=== PATIENT | male | born 1955 | race Caucasian/White ===

== ENCOUNTER 2021-11-14 13:32 | Inpatient (IN) | payer OTHER, SELFPAY ==
[~2021-11-14] VITALS: Ht 152.4 cm; Wt 81.2 kg
--- NOTE | 2021-11-14 13:32 | NUR ---
BROUGHT IN BY [facility], PLACED IN BED #7 AND TRIAGED. REPORT GIVEN TO ISHA
[2021-11-14 13:33] VITALS: BP_SYST 82
--- NOTE | 2021-11-14 13:36 | NUR ---
ER at bedside examining patient.
--- NOTE | 2021-11-14 13:40 | NUR ---
Pt. bib ACLS from [facility] with low BP, chills, diaphoretic and c/o SOB, temporal temp 95.9, confirmed with rectal temp. also 95.9, pt. having loose stool, 2 dressings noted on buttocks, one to the sacrum and one to the left upper buttocks
[2021-11-14] MEDS ORDERED: NACL 0.9% 1,000 ML IV ONE (14:00)
[2021-11-14] MEDS ORDERED: ONDANSETRON HCL 4 MG/2 ML VIAL ONE ×2 (14:25→20:33)
--- NOTE | 2021-11-14 14:29 | NUR ---
CT here, informed Dr. Shin BP 76/41 and pulse [address] at this time, NS bolus infusing
[2021-11-14] MEDS ORDERED: NOREPINEPHRINE BITARTRATE 4 MG in NS 246 ML IV ONE (14:30)
[2021-11-14] MEDS ORDERED: ONDANSETRON HCL 4 MG/2 ML VIAL IVP ONE (14:30)
--- NOTE | 2021-11-14 14:34 | NUR ---
ER at bedside examining patient.
[2021-11-14] MEDS ORDERED: NOREPINEPHRINE 4 MG/4 ML VIAL IV ONE (14:36)
--- NOTE | 2021-11-14 14:40 | NUR ---
2nd bag of NS ordered and hung
--- NOTE | 2021-11-14 14:40 | NUR ---
Patient given bear hugger blanket as indicated by low rectal temperture (95.9F). Heater was placed at 43C.
[2021-11-14 14:46] LABS: BASOPHILS % (AUTO) 0.7 % (0.0-2.0); EOSINOPHILS # (AUTO) 0.1 K/uL (0.0-0.4); HEMATOCRIT 35.3 % (36-54); HEMOGLOBIN 11.9 g/dL (14.0-18.0); LYMPHOCYTES # (AUTO) 1.2 K/uL (1.0-5.5); LYMPHOCYTES % (AUTO) 20.4 % (20.5-51.5); MEAN CORPUSCULAR HEMOGLOBIN 26 pg (27-31); MEAN CORPUSCULAR HGB CONC 34 % (32-36); MEAN CORPUSCULAR VOLUME 77 fL (79.0-98.0); MONOCYTES # (AUTO) 0.5 K/uL (0.0-1.0); MONOCYTES % (AUTO) 8.7 % (1.7-9.3); NEUTROPHILS # (AUTO) 4.1 K/uL (1.8-7.7); NEUTROPHILS % (AUTO) 68.2 % (40.0-70.0); PLATELET COUNT (AUTO) 343 K/uL (130-430); RED BLOOD CELL COUNT(AUTO) 4.56 MIL/uL (4.2-6.2); RED CELL DISTRIBUTION WIDTH 16.2 % (9.0-15.0)
--- NOTE | 2021-11-14 14:48 | NUR ---
Norepinephrine started per protocol
--- NOTE | 2021-11-14 14:58 | NUR ---
norepinephrine increased per protocol BP 83/41 P=39
[2021-11-14] MEDS ORDERED: NACL 0.9% 1,000 ML IV STA (15:03)
[2021-11-14 15:05] LABS: BILIRUBIN,URINE NEGATIVE (NEGATIVE); BLOOD, URINE 3+ (NEGATIVE); CLARITY/URINE SL CLOUDY (CLEAR); COLOR,URINE YELLOW (YELLOW); GLUCOSE,URINE NEGATIVE (NEGATIVE); KETONES,URINE NEGATIVE (NEGATIVE); LEUKOCYTE ESTERASE ,URINE 2+ (NEGATIVE); NITRITE, URINE NEGATIVE (NEGATIVE); PROTEIN URINE 1+ (NEGATIVE); UROBILINOGEN,URINE 0.2 (0.2-1.0)
--- NOTE | 2021-11-14 15:05 | NUR ---
BP 105/60 M=76, P 38, O2 sat 99% on RA, RR 22, norepinephrine remains at 0.13mcg/kg/min
[2021-11-14 15:07] LABS: ANION GAP 11 (5-15); CALCIUM 9.2 mg/dL (8.4-11.0); CHLORIDE 100 mmol/L (98-107); CREATININE 1.01 mg/dL (0.55-1.30); GLUCOSE 98 mg/dL (70-99); POTASSIUM 3.8 mmol/L (3.5-5.1); SODIUM SERUM 135 mmol/L (136-145); UREA NITROGEN, BLOOD 14 mg/dL (8-21)
[2021-11-14 15:08] LABS: PROTHROMBIN TIME 10.1 SECS (9.5-12.5)
[2021-11-14 15:11] LABS: GFR AFRICAN AMERICAN 96 mL/min (>90)
[2021-11-14 15:12] LABS: ALANINE AMINOTRANSFERASE 18 U/L (12-78); ALBUMIN 3.7 g/dL (3.4-4.8); ASPARTATE AMINOTRANSFERASE 14 U/L (10-37); C-REACTIVE PROTEIN QUANT 1.5 mg/dL (0-0.5); TOTAL BILIRUBIN 0.3 mg/dL (0.0-1.0)
--- NOTE | 2021-11-14 15:13 | NUR ---
pt. states feels like can't breathe requesting O2, sat 99% on RA, RR 22, 2L of O2 started via NC for comfort
[2021-11-14 15:15] LABS: BARBITURATE, URINE NEGATIVE (NEG <=200); BENZODIAZEPINE, URINE POSITIVE (NEG <=150); CANNABINOID, URINE POSITIVE (NEG <=50); COCAINE, URINE NEGATIVE (NEG <=150); METHAMPHETAMINES SCREEN,URINE NEGATIVE (NEG <=500); OPIATE, URINE NEGATIVE (NEG <=100); PHENCYCLIDINE SCREEN,URINE NEGATIVE (NEG <=25); UR TRICYCLIC ANTIDEPRESSANTS NEGATIVE (NEG <=300); URINE AMPHETAMINE NEGATIVE (NEG <=500); URINE METHADONE NEGATIVE (NEG <=200); URINE OXYCODONE SCREEN POSITIVE (NEG <=100); URINE PROPOXYPHENE SCREEN NEGATIVE (NEG <=300)
[2021-11-14] MEDS ORDERED: OSELTAMIVIR PHOSPHATE 75 MG CAPSULE PO ONE (15:30)
[2021-11-14] MEDS ORDERED: NACL 0.9% 500 ML IV ONE (16:00)
--- NOTE | 2021-11-14 16:05 | NUR ---
still unable to get temporal tempature, remains under bear hugger set at 43C, pt. states feels warm he remains cool and clammy, wet linens replaced with warm blankets
--- NOTE | 2021-11-14 16:10 | NUR ---
Norepherine increased
[2021-11-14] MEDS ORDERED: PIPERACILLIN/TAZOBACTAM 3.375 GM/VIAL (ZOSYN) IV ONE (16:11)
[2021-11-14] MEDS ORDERED: PIPERACILLIN/TAZO 3.375 GM in NS 50 ML IV ONE (16:15)
[2021-11-14] MEDS ORDERED: VANCOMYCIN HCL 1,000 MG in NS 250 ML IV ONE (16:15)
--- NOTE | 2021-11-14 16:29 | NUR ---
BP 102/37 M-62
--- NOTE | 2021-11-14 16:30 | NUR ---
norepherine increased per protocol
[2021-11-14 16:32] LABS: ACETONE, SERUM NEGATIVE (NEGATIVE)
[2021-11-14] MEDS ORDERED: VANCOMYCIN HCL 1000 MG/VIAL IV ONE (16:35)
[2021-11-14 16:40] LABS: BACTERIA,URINE MODERATE /HPF (None Seen)
--- NOTE | 2021-11-14 16:40 | NUR ---
BP- 89/49 M- 62, norepinephrine increased per protocol now 0.21mcg/kg/min
[2021-11-14 16:41] LABS: MUCUS,URINE None Seen /LPF (None Seen); URINE AMORPHOUS URATE 2+ /HPF (None Seen)
[2021-11-14 16:48] LABS: ACETAMINOPHEN < 1 ug/mL (1-30); ALCOHOL, BLOOD < 3 mg/dL (<10)
--- NOTE | 2021-11-14 17:05 | NUR ---
update to Dr. Shin regarding inability to get temperture, pt. on warm dry blankets, rectal tube placed for continous loose stool
--- NOTE | 2021-11-14 17:09 | NUR ---
norepephrine increased per protocol
[2021-11-14] MEDS ORDERED: ACETAMINOPHEN I.V. 1000 MG 100 ML IV ONE (17:15)
[2021-11-14] MEDS ORDERED: IOHEXOL 350 mgI/mL, 150 ML INFUS..BTL IV ONE (17:37)
[2021-11-14] MEDS ORDERED: KETOROLAC TROMETHAMINE 30 MG VIAL IVP ONE (18:15)
[2021-11-14] MEDS ORDERED: NS 500 ML IV ONE (18:15)
[2021-11-14] MEDS ORDERED: DOPamine PREMIX 250 ML IV ONE (19:30)
--- NOTE | 2021-11-14 19:30 | NUR ---
Trupti sullivan running at 43 degrees. Temp at 95 orally.
[2021-11-14] MEDS: MORPHINE 2 MG/ML INJ. SYRINGE IVP PRN (19:58)
--- NOTE | 2021-11-14 20:42 | NUR ---
levophed stopped and started on dopamine at 5mcq/kg/min per protocol. BP documented and is stable.
[2021-11-14] MEDS ORDERED: ONDANSETRON HCL 4 MG/2 ML VIAL IVP PRN (20:45)
[2021-11-14] MEDS ORDERED: MILK OF MAGNESIA 30 ML UDC PO PRN (21:45)
[2021-11-14] MEDS ORDERED: LOPERAMIDE HCL 2 MG CAPSULE PO PRN (21:45)
[2021-11-14] MEDS: D5LR 1,000 ML IV SCH (22:25)
--- NOTE | 2021-11-14 22:39 | NUR ---
D5LR running at 100mls/hr.
--- NOTE | 2021-11-14 22:40 | NUR ---
Patient requested water with ice, provided and tolerated well.
--- NOTE | 2021-11-14 22:44 | NUR ---
EKG done by tech.
[2021-11-14 23:40] VITALS: BP_SYST 104
--- NOTE | 2021-11-14 23:46 | NUR ---
Patient transferred to ICU Bed 1. Report given to COMPUGRAPH OPERATOR.
[2021-11-15] VITALS (33 sets, daily range): BP systolic 78–179
[2021-11-15] MEDS ORDERED: PIPERACILLIN/TAZOBACTAM 3.375 GM/VIAL (ZOSYN) IV ONE (02:00)
[2021-11-15] MEDS: PIPERACILLIN/TAZO 3.375/DEX-IS 50 ML IV SCH ×4 (02:11→18:00)
--- NOTE | 2021-11-15 02:47 | NUR ---
DR. FERNÁNDEZ PAGED REGARDING ORDERS. SPOKE WITH VELASQUEZ HDZ AFTER HOURS.
[2021-11-15] MEDS: DIPHENHYDRAMINE HCL 25 MG CAPSULE PO SCH ×2 (03:00→22:10)
[2021-11-15] MEDS: TEMAZEPAM 7.5 MG CAPSULE PO SCH ×2 (03:00→22:11)
[2021-11-15] MEDS: D5LR 1,000 ML IV SCH ×3 (06:16→22:41)
[2021-11-15 06:43] LABS: BASOPHILS % (AUTO) 0.2 % (0.0-2.0); HEMATOCRIT 33.9 % (36-54); HEMOGLOBIN 11.3 g/dL (14.0-18.0); LYMPHOCYTES # (AUTO) 0.3 K/uL (1.0-5.5); MEAN CORPUSCULAR HEMOGLOBIN 26 pg (27-31); MEAN CORPUSCULAR HGB CONC 33 % (32-36); MEAN CORPUSCULAR VOLUME 78 fL (79.0-98.0); MONOCYTES # (AUTO) 0.8 K/uL (0.0-1.0); MONOCYTES % (AUTO) 9.8 % (1.7-9.3); PLATELET COUNT (AUTO) 278 K/uL (130-430); RED BLOOD CELL COUNT(AUTO) 4.37 MIL/uL (4.2-6.2); RED CELL DISTRIBUTION WIDTH 16.1 % (9.0-15.0); WHITE BLOOD COUNT (AUTO) 8.1 K/uL (4.8-10.8)
--- NOTE | 2021-11-15 06:46 | NUR ---
CONSULTATION PAGED/CALLED Reason for Consultation: SEPTIC SHOCK Person Who was Notified: LESLEY Consulting Physician: DR. LORA Business Management Consultant Specialty: PULMONOLOGY Ordering Physician: JOLENE
[2021-11-15 06:49] LABS: ALANINE AMINOTRANSFERASE 20 U/L (12-78); ALBUMIN 3.1 g/dL (3.4-4.8); ANION GAP 10 (5-15); ASPARTATE AMINOTRANSFERASE 15 U/L (10-37); CALCIUM 8.6 mg/dL (8.4-11.0); CHLORIDE 107 mmol/L (98-107); CREATININE 0.98 mg/dL (0.55-1.30); FREE T4 (FREE THYROXINE) 1.2 ng/dl (0.8-1.5); GLUCOSE 124 mg/dL (70-99); LIPASE 211 U/L (73-393); POTASSIUM 4.2 mmol/L (3.5-5.1); SODIUM SERUM 138 mmol/L (136-145); TOTAL BILIRUBIN 0.5 mg/dL (0.0-1.0); UREA NITROGEN, BLOOD 17 mg/dL (8-21)
--- NOTE | 2021-11-15 06:52 | NUR ---
CONSULTATION PAGED/CALLED Reason for Consultation: BRADYCARDIA Person Who was Notified: VELASQUEZ Consulting Physician: RAMESH Drum Sander Specialty: CARDIOLOGY Ordering Physician: JOLENE
--- NOTE | 2021-11-15 06:57 | NUR ---
CONSULTATION PAGED/CALLED Reason for Consultation: SEPSIS Person Who was Notified: NIDIA Consulting Physician: FLOYD [employer] Fab[employer] Impregnating Range Tender Specialty: INFECTIOUS DISEASE Ordering Physician: JOLENE
[2021-11-15 07:31] LABS: GFR AFRICAN AMERICAN 99 mL/min (>90)
--- NOTE | 2021-11-15 08:00 | NUR ---
Dr. Bone in to round. Orders left.
[2021-11-15] MEDS: OSELTAMIVIR PHOSPHATE 75 MG CAPSULE PO SCH ×2 (09:07→22:12)
[2021-11-15] MEDS ORDERED: NOREPINEPHRINE BITARTRATE 32 MG in NS 218 ML IV PRN (09:30)
[2021-11-15] MEDS ORDERED: NOREPINEPHRINE BITARTRATE 4 MG in D5W 246 ML IV PRN (10:30)
--- NOTE | 2021-11-15 12:13 | NUR ---
Nutrition Update Reinier Scale 9 noted. Pt admitted for septic shock. Diet: N/A BMI: 35 kg/m2 RD to follow per nutrition care standards.
--- NOTE | 2021-11-15 12:34 | NUR ---
ST EVALUATION COMPLETED. ST TX NOT INDICATED AT THIS TIME. RECOMMEND PO DIET OF MECHANICAL SOFT AND THIN LIQUID. 1:1 SUPERVISION FOR ASPIRATION PRECAUTIONS.
[2021-11-15] MEDS: ONDANSETRON HCL 4 MG/2 ML VIAL IVP PRN (13:37)
[2021-11-15] MEDS ORDERED: *LOVENOX 1MG/KG Q12H/PHARMACY XX ONE (14:15)
[2021-11-15] MEDS ORDERED: FAMOTIDINE PF 20 MG/2 ML VIAL IVP ONE (14:45)
[2021-11-15] MEDS ORDERED: ENOXAPARIN SODIUM 80 MG/0.8 ML SYRINGE SUBCUT ONE (15:00)
[2021-11-15] MEDS: MORPHINE 2 MG/ML INJ. SYRINGE IVP PRN ×2 (15:38→23:11)
--- NOTE | 2021-11-15 15:57 | NUR ---
Dietitian Recommendations * Continue plan for clear liquid, no red diet per physician (ONS Ensure Clear TID comes standard w/ current diet; provides 720 kcal/day, 24 gm protein/day) LEANNE, COSTA Please refer to Nutrition Assessment for details. Addendum: 11/15/21 at [address] Amended: Links added.
[2021-11-15] MEDS ORDERED: METOCLOPRAMIDE HCL 10 MG/2 ML VIAL IVP SCH (18:00)
--- NOTE | 2021-11-15 18:56 | NUR ---
End of Shift Summary: Pt is NPO on bowel rest for large ileus. He had 2 episodes of N/V, the first after his swallow eval. He is having liquid, brown stools. Dignicare in place. Sample sent for C. Diff eval, but diarrhea is likely 2/2 ileus and stool impaction. Per pt's sister, he likely has not had a bowel movement since the last time her got his bowel regimen on 10/31/21. Pt agreed to NGT insertion and placement to LIS per Dr. Ceron. Pt also agreed to PICC line placement after speaking with his sister; he is a difficult IV placement and will require regular blood draws. Pt remains on Levophed infusion for BP support. Pt weaned off supplemental O2. Temperature trending up, will continue to monitor. Pt's daughter visited and was updated on his condition. She will bring info regarding the Rx he has for the eczema on his face and scalp.
--- NOTE | 2021-11-15 21:00 | NUR ---
PATIENT WAS ACCEPTED AND ASSESS DONE , PATIENT IS SPINAL INJURIES THERE ARE PLAN FOR THE BOWEL AND BLADDER CARE , PATIENT IS UNABLE TO TAKE CARE OF HIM SELF , PARIENT IS LEVOPHED DRIP TO MAINTAIN HIS BP , UNABLE TO WEAN AT THIS TIME , PATIENT HAS NO PATIENCE AND IS VERY DEMANDING , NEED AN NURSE OR CARE GIVEN PER SELF , NOT SATISFIED , WHEN THING ARE DONE FOR HIM , HAS AN EMTZ RETAL TUBE NGT AND THE PATIENT IS NPO MEDICATION DOWN THE NGT PATIENT ASK FOR WATER TO DRINK TRIED TO EXPLAINED WITH THE NGT IN IF WOULD BE SOME PROBLEM DID NOT WANT TO HEAR WHAT HAS BEEN SAID STILL WANTED THE WATER, , WILL CONTINUED TO MONITOR THE PATIENT
[2021-11-15] MEDS: FAMOTIDINE PF 20 MG/2 ML VIAL IVP SCH (22:12)
--- NOTE | 2021-11-15 23:00 | NUR ---
THE RECTAL TUBE LEAK AROUND TUBING SAMUEL SKIN CARE TO BE GIVEN ALSO AT THIS TIME THE BP WAS LOW THE LEVOPHED DRIP INCREASED TO 0.05 WILL LEAVE HERE STABLE CONTINUED TO MONITOR , STABLE
[2021-11-16] VITALS (24 sets, daily range): BP systolic 92–137
[2021-11-16] MEDS: PIPERACILLIN/TAZO 3.375/DEX-IS 50 ML IV SCH ×4 (00:30→17:44)
[2021-11-16 04:55] LABS: BASOPHILS % (AUTO) 0.5 % (0.0-2.0); EOSINOPHILS % (AUTO) 0.1 % (0.0-4.0); HEMATOCRIT 37.1 % (36-54); HEMOGLOBIN 12.4 g/dL (14.0-18.0); LYMPHOCYTES # (AUTO) 1.1 K/uL (1.0-5.5); LYMPHOCYTES % (AUTO) 11.6 % (20.5-51.5); MEAN CORPUSCULAR HEMOGLOBIN 26 pg (27-31); MEAN CORPUSCULAR HGB CONC 33 % (32-36); MEAN CORPUSCULAR VOLUME 77 fL (79.0-98.0); MONOCYTES # (AUTO) 1.5 K/uL (0.0-1.0); MONOCYTES % (AUTO) 15.6 % (1.7-9.3); NEUTROPHILS # (AUTO) 6.9 K/uL (1.8-7.7); NEUTROPHILS % (AUTO) 72.2 % (40.0-70.0); PLATELET COUNT (AUTO) 294 K/uL (130-430); RED BLOOD CELL COUNT(AUTO) 4.81 MIL/uL (4.2-6.2); RED CELL DISTRIBUTION WIDTH 16.2 % (9.0-15.0); WHITE BLOOD COUNT (AUTO) 9.6 K/uL (4.8-10.8)
[2021-11-16 05:14] LABS: ALBUMIN 2.7 g/dL (3.4-4.8); CALCIUM 8.7 mg/dL (8.4-11.0); POTASSIUM 4.3 mmol/L (3.5-5.1); TOTAL BILIRUBIN 0.5 mg/dL (0.0-1.0)
--- NOTE | 2021-11-16 05:34 | NUR ---
PATIENT HAD REST THRU OUT THE NITE ALSO HAD GOTTEN MORPHINE 2MG IV AT 2311 HAD ASK ABOUT HIS MEDICATION SLEEPER , STABLE WILL CONTINUED WITH PLAN OF CARE, STABLE
[2021-11-16] MEDS: OSELTAMIVIR PHOSPHATE 75 MG CAPSULE PO SCH ×2 (08:34→22:04)
[2021-11-16] MEDS: FAMOTIDINE PF 20 MG/2 ML VIAL IVP SCH ×2 (08:34→22:06)
[2021-11-16] MEDS: ENOXAPARIN SODIUM 80 MG/0.8 ML SYRINGE SUBCUT SCH ×2 (08:36→22:05)
[2021-11-16] MEDS: D5LR 1,000 ML IV SCH ×2 (08:56→16:22)
[2021-11-16] MEDS: MORPHINE 2 MG/ML INJ. SYRINGE IVP PRN ×2 (09:02→16:19)
[2021-11-16] MEDS: MIDODRINE HCL 5 MG TABLET (PROAMATINE) PO SCH ×2 (16:18→22:04)
[2021-11-16] MEDS: ONDANSETRON HCL 4 MG/2 ML VIAL IVP PRN (16:18)
[2021-11-16] MEDS ORDERED: GOLYTELY / COLYTE SOLUTION 4 LITERS NG ONE (18:45)
[2021-11-16] MEDS ORDERED: KETOCONAZOLE 2% TP SCH (18:45)
--- NOTE | 2021-11-16 19:30 | NUR ---
Pt report received. Pt alert, responsive, NGT patent and secure to low intermittent wall suction with approx 200 mL dark green stomach contents to suction cannister. PIV to RAC and Left wrist patent and secure. PICC RITESH patent and secure wtih D5LR infusing at 100 mL/hr. F/C secure with eugenio urine to tubing and bag. Flexiseal intact with loose brown stool to bag. Denies c/o pain or discomfort, no needs vebalized at this time.
[2021-11-16] MEDS: SENNA 8.8 MG/5 ML UDC NG SCH (21:00)
--- NOTE | 2021-11-16 21:00 | NUR ---
Oral care provided.
[2021-11-16] MEDS: TEMAZEPAM 7.5 MG CAPSULE PO SCH (22:04)
[2021-11-16] MEDS: DIPHENHYDRAMINE HCL 25 MG CAPSULE PO SCH (22:04)
--- NOTE | 2021-11-16 23:00 | NUR ---
NGT remains connected to low intermittent wall suction with approximately 600 mL dark green stomach contents to suction canister. Abdomen firm to touch. Pt c/o nausea. Wall suction turned to low continuous suction and suction canister fills to 1 liter. Changed suction canister and removed another 400 mL of dark green stomach contents. Suction placed back to low intermittent. Abdomen soft and pt verbalizes improvement in level of comfort. Pt to be medicated with Zofran 4 mg IVP.
[2021-11-17] VITALS (24 sets, daily range): BP systolic 93–160
[2021-11-17] MEDS: D5LR 1,000 ML IV SCH ×2 (03:07→13:37)
--- NOTE | 2021-11-17 06:00 | NUR ---
Pt alert, responsive, denies c/o pain or discomfort. No needs verbalized at this time. Wall suction turned to low continuous and 300 mL dark green stomach contents removed, then placed back to low intermittent suction.VSS, KARINA.
[2021-11-17] MEDS: PIPERACILLIN/TAZO 3.375/DEX-IS 50 ML IV SCH ×4 (06:44→17:52)
[2021-11-17 06:45] LABS: BASOPHILS # (AUTO) 0.1 K/uL (0.0-0.2); BASOPHILS % (AUTO) 0.7 % (0.0-2.0); EOSINOPHILS % (AUTO) 0.1 % (0.0-4.0); HEMATOCRIT 30.1 % (36-54); HEMOGLOBIN 10.2 g/dL (14.0-18.0); LYMPHOCYTES # (AUTO) 1.1 K/uL (1.0-5.5); LYMPHOCYTES % (AUTO) 14.1 % (20.5-51.5); MEAN CORPUSCULAR HEMOGLOBIN 26 pg (27-31); MEAN CORPUSCULAR HGB CONC 34 % (32-36); MEAN CORPUSCULAR VOLUME 76 fL (79.0-98.0); MONOCYTES # (AUTO) 1.1 K/uL (0.0-1.0); MONOCYTES % (AUTO) 14.5 % (1.7-9.3); NEUTROPHILS # (AUTO) 5.5 K/uL (1.8-7.7); NEUTROPHILS % (AUTO) 70.6 % (40.0-70.0); PLATELET COUNT (AUTO) 220 K/uL (130-430); RED BLOOD CELL COUNT(AUTO) 3.95 MIL/uL (4.2-6.2); RED CELL DISTRIBUTION WIDTH 15.6 % (9.0-15.0); WHITE BLOOD COUNT (AUTO) 7.9 K/uL (4.8-10.8)
[2021-11-17 07:13] LABS: CALCIUM 8.5 mg/dL (8.4-11.0); CREATININE 1.05 mg/dL (0.55-1.30); PHOSPHORUS 3.5 mg/dL (2.7-4.5); POTASSIUM 3.4 mmol/L (3.5-5.1)
--- NOTE | 2021-11-17 07:29 | NUR ---
Pt report given to oncoming RN.
[2021-11-17] MEDS ORDERED: GOLYTELY / COLYTE SOLUTION 4 LITERS NG ONE (08:00)
--- NOTE | 2021-11-17 08:15 | NUR ---
CONSULT GI CONSULTING MD: DR. HUNT (DR. SPAULDING FARMWORKER GRAIN) PERSON NOTIFIED: JUSTIN DIALED: [phone] ORDERED BY: DR. AVALOS
[2021-11-17] MEDS: KETOCONAZOLE 2% TP SCH (09:00)
--- NOTE | 2021-11-17 09:00 | NUR ---
nizoral not admin, pt head shaved
--- NOTE | 2021-11-17 09:00 | NUR ---
Dr. Bazan asked to hold go cammie pending GI consult
[2021-11-17] MEDS: FAMOTIDINE PF 20 MG/2 ML VIAL IVP SCH ×2 (09:34→21:59)
[2021-11-17] MEDS: OSELTAMIVIR PHOSPHATE 75 MG CAPSULE PO SCH ×2 (09:34→22:00)
[2021-11-17] MEDS: MIDODRINE HCL 5 MG TABLET (PROAMATINE) PO SCH ×3 (09:35→21:59)
[2021-11-17] MEDS: SENNA 8.8 MG/5 ML UDC NG SCH ×2 (09:35→21:59)
[2021-11-17] MEDS: ENOXAPARIN SODIUM 80 MG/0.8 ML SYRINGE SUBCUT SCH ×2 (09:36→22:01)
[2021-11-17] MEDS: MORPHINE 2 MG/ML INJ. SYRINGE IVP PRN ×3 (11:45→20:00)
[2021-11-17] MEDS ORDERED: MINERAL OIL 133 ML ENEMA RC ONE (15:30)
[2021-11-17] MEDS: SODIUM PHOSPHATE,MONO-DIBASIC 133 ML ENEMA RC PRN ×2 (15:55→15:57)
[2021-11-17] MEDS ORDERED: POTASSIUM CHLORIDE 40 MEQ in D5W 250 ML IV ONE (16:00)
[2021-11-17] MEDS ORDERED: METOCLOPRAMIDE HCL 10 MG/2 ML VIAL ONE (16:50)
[2021-11-17] MEDS: METOCLOPRAMIDE HCL 10 MG/2 ML VIAL IVP SCH ×2 (16:52→22:01)
[2021-11-17] MEDS: ACETAMINOPHEN 325 MG TABLET PO PRN (17:39)
[2021-11-17] MEDS ORDERED: KCL 40 mEq in 100 mL (PREMIX) 100 ML IV ONE (18:33)
[2021-11-17] MEDS ORDERED: VANCOMYCIN HCL 1 GM/NS PREMIX 250 ML IV ONE (20:00)
[2021-11-17] MEDS ORDERED: ENOXAPARIN SODIUM 100 MG/ML SYRINGE ONE (20:31)
[2021-11-17] MEDS ORDERED: VANCOMYCIN HCL 1000 MG/VIAL IV ONE (20:49)
[2021-11-17] MEDS: DIPHENHYDRAMINE HCL 25 MG CAPSULE PO SCH (21:59)
[2021-11-17] MEDS: TEMAZEPAM 7.5 MG CAPSULE PO SCH (22:00)
[2021-11-18] VITALS (20 sets, daily range): BP systolic 106–175
[2021-11-18] MEDS: PIPERACILLIN/TAZO 3.375/DEX-IS 50 ML IV SCH ×4 (00:44→17:09)
[2021-11-18] MEDS: MORPHINE 2 MG/ML INJ. SYRINGE IVP PRN ×4 (00:55→21:35)
[2021-11-18] MEDS: D5LR 1,000 ML IV SCH ×4 (03:00→22:02)
[2021-11-18] MEDS: METOCLOPRAMIDE HCL 10 MG/2 ML VIAL IVP SCH ×3 (06:27→21:13)
[2021-11-18 06:32] LABS: BASOPHILS # (AUTO) 0.1 K/uL (0.0-0.2); BASOPHILS % (AUTO) 1.1 % (0.0-2.0); EOSINOPHILS # (AUTO) 0.1 K/uL (0.0-0.4); EOSINOPHILS % (AUTO) 1.1 % (0.0-4.0); HEMATOCRIT 25.3 % (36-54); HEMOGLOBIN 8.8 g/dL (14.0-18.0); LYMPHOCYTES # (AUTO) 0.8 K/uL (1.0-5.5); LYMPHOCYTES % (AUTO) 16.6 % (20.5-51.5); MEAN CORPUSCULAR HEMOGLOBIN 26 pg (27-31); MEAN CORPUSCULAR HGB CONC 35 % (32-36); MEAN CORPUSCULAR VOLUME 76 fL (79.0-98.0); MONOCYTES # (AUTO) 0.6 K/uL (0.0-1.0); MONOCYTES % (AUTO) 11.3 % (1.7-9.3); NEUTROPHILS # (AUTO) 3.5 K/uL (1.8-7.7); NEUTROPHILS % (AUTO) 69.9 % (40.0-70.0); PLATELET COUNT (AUTO) 173 K/uL (130-430); RED BLOOD CELL COUNT(AUTO) 3.35 MIL/uL (4.2-6.2)
[2021-11-18 06:40] LABS: ALBUMIN 2.1 g/dL (3.4-4.8); CALCIUM 7.9 mg/dL (8.4-11.0); CREATININE 0.84 mg/dL (0.55-1.30); PHOSPHORUS 2.4 mg/dL (2.7-4.5); POTASSIUM 3.5 mmol/L (3.5-5.1); TOTAL BILIRUBIN 0.4 mg/dL (0.0-1.0)
--- NOTE | 2021-11-18 08:45 | NUR ---
Patient was seen for Evaluation and ROM to his extremities. He became very upset when he was told that he can receive ROM exercises several times a week while in the hospital. He misunderstood that to mean that he was staying for a prolonged time in the hospital. Patient called his daughter, Cris, who spoke with the Physical Therapist. Daughter, said that she will be at the hospital later. Physical Therapist spoke with the patient's RN.
[2021-11-18] MEDS ORDERED: GASTROGRAFIN 120 ML ONE (09:02)
[2021-11-18] MEDS: FAMOTIDINE PF 20 MG/2 ML VIAL IVP SCH ×2 (09:12→21:14)
[2021-11-18] MEDS: SENNA 8.8 MG/5 ML UDC NG SCH ×2 (09:12→21:22)
[2021-11-18] MEDS: amLODIPine BESYLATE 5 MG TABLET PO SCH (09:12)
[2021-11-18] MEDS: SODIUM PHOSPHATE,MONO-DIBASIC 133 ML ENEMA RC PRN (09:12)
[2021-11-18] MEDS: OSELTAMIVIR PHOSPHATE 75 MG CAPSULE PO SCH ×2 (09:13→21:10)
[2021-11-18] MEDS ORDERED: VANCOMYCIN HCL 750 MG in NS 250 ML IV SCH (10:00)
[2021-11-18] MEDS: ENOXAPARIN SODIUM 80 MG/0.8 ML SYRINGE SUBCUT SCH ×2 (10:14→21:17)
--- NOTE | 2021-11-18 10:56 | NUR ---
Discharge Planning: DCP faxed pt referral to [facility] (F [phone] P [phone]) DCP to follow up. Addendum: 11/18/21 at 1601 by Daija Rankin DP Katharine at [facility] (F [phone] P [phone]) stated she will wait for results of small bowel procedure before giving bed.
[2021-11-18] MEDS ORDERED: hydrALAZINE HCL 20 MG/ML VIAL IVP PRN (12:15)
[2021-11-18] MEDS ORDERED: POTASSIUM CHLORIDE 40 MEQ in D5W 250 ML IV ONE (12:30)
[2021-11-18] MEDS ORDERED: NALOXONE HCL 0.4 MG/ML AMP (NARCAN) IVP PRN (13:15)
[2021-11-18 13:30] LABS: TOTAL IRON BIND. CAPACITY 234 ug/dL (250-450)
[2021-11-18] MEDS: AMIKACIN SULFATE 450 MG in D5W 100 ML IV SCH (14:08)
[2021-11-18] MEDS: ONDANSETRON HCL 4 MG/2 ML VIAL IVP PRN (15:17)
--- NOTE | 2021-11-18 17:26 | NUR ---
Pt had elevated bp 152/90, medicated with hydralazine. Pt had abdominal bowel series at the bedside, read the results to DR Dodge and obtained order to d/c ngt and ordered swallow eval by speech therapist. Pt did have some nausea and medicated with zofran per md order. Pt also had 2 large loose bms, skin washed and kept dry. Pt remains SR at 63, BP 106/71.
[2021-11-18] MEDS: ACETAMINOPHEN 325 MG TABLET PO PRN (18:10)
--- NOTE | 2021-11-18 19:30 | NUR ---
OPENING NOTE RECEIVED REPORT FROM DAY RN. PT AOX4. RIGHT UPPER ARM PICC INTACT. DRESSING CLEAN AND DRY. PT HAS TWO ADDITIONAL IV LINES IN RIGHT AC 20G AND LEFT FA 22G. METZ INTACT AND DRAINING YELLOW FLUID. BED IN LOWEST AND LOCKED POSITION. EDUCATION PT ON PLAN OF CARE FOR THE NIGHT. CALL LIGHT WITHIN REACH. SAFETY PRECAUTIONS IN PLACE. WILL CONTINUE TO MONITOR.
[2021-11-18] MEDS: TEMAZEPAM 7.5 MG CAPSULE PO SCH (21:10)
[2021-11-18] MEDS: DIPHENHYDRAMINE HCL 25 MG CAPSULE PO SCH (21:14)
--- NOTE | 2021-11-18 21:20 | NUR ---
MEDICATION REQUEST PT WOULD LIKE HIS RESTORIL AND BENADRYL TO BE ADMINISTERED AT 0100. PT STATES, "ONLY OLD PEOPLE SLEEP THIS EARLY". PT EDUCATED ON SCHEDULED DOSES. PT PREFERS LATER TIME.
[2021-11-19] VITALS (9 sets, daily range): BP systolic 133–157
[2021-11-19] MEDS: PIPERACILLIN/TAZO 3.375/DEX-IS 50 ML IV SCH ×2 (00:52→05:21)
[2021-11-19] MEDS ORDERED: AMIKACIN SULFATE 500 MG/2 ML VIAL ONE (01:35)
[2021-11-19] MEDS: HYDROcodone/ACETAMIN 10-325 MG TAB PO PRN (02:10)
[2021-11-19] MEDS: AMIKACIN SULFATE 450 MG in D5W 100 ML IV SCH ×2 (02:11→15:18)
--- NOTE | 2021-11-19 04:48 | NUR ---
Swallow Eval Called Left a message to Jill regarding swallow eval, ordered by Dr. Dodge.
[2021-11-19] MEDS: METOCLOPRAMIDE HCL 10 MG/2 ML VIAL IVP SCH ×3 (05:22→21:45)
[2021-11-19] MEDS: D5LR 1,000 ML IV SCH (05:31)
--- NOTE | 2021-11-19 05:45 | NUR ---
ROUNDING DURING ROUNDING PATIENT HAD VOIDED. COLLECTED STOOL SAMPLE AND DELIVERED TO LAB FOR OCCULT BLOOD. PATIENT ALERT IN BED. WILL CONTINUE TO MONITOR.
[2021-11-19 06:42] LABS: CREATININE 0.76 mg/dL (0.55-1.30); POTASSIUM 3.3 mmol/L (3.5-5.1)
--- NOTE | 2021-11-19 06:54 | NUR ---
CLOSING NOTES PATIENT ALERT IN BED. PILLOWS ADJUSTED FOR COMFORT. RESPIRATIONS EVEN AND UNLABORED. PATIENT DENIES ANY PAIN AT THIS TIME. BED IN LOWEST AND LOCKED POSITION. ALL NEEDS MET. WILL ENDORSE TO DAY RN.
[2021-11-19 07:39] LABS: BASOPHILS % (AUTO) 0.4 % (0.0-2.0); EOSINOPHILS # (AUTO) 0.1 K/uL (0.0-0.4); EOSINOPHILS % (AUTO) 3.5 % (0.0-4.0); HEMATOCRIT 25.5 % (36-54); HEMOGLOBIN 8.6 g/dL (14.0-18.0); LYMPHOCYTES # (AUTO) 1.1 K/uL (1.0-5.5); LYMPHOCYTES % (AUTO) 27.2 % (20.5-51.5); MEAN CORPUSCULAR HEMOGLOBIN 26 pg (27-31); MEAN CORPUSCULAR HGB CONC 34 % (32-36); MEAN CORPUSCULAR VOLUME 76 fL (79.0-98.0); MONOCYTES # (AUTO) 0.6 K/uL (0.0-1.0); MONOCYTES % (AUTO) 13.3 % (1.7-9.3); NEUTROPHILS # (AUTO) 2.3 K/uL (1.8-7.7); NEUTROPHILS % (AUTO) 55.6 % (40.0-70.0); PLATELET COUNT (AUTO) 176 K/uL (130-430); RED BLOOD CELL COUNT(AUTO) 3.35 MIL/uL (4.2-6.2); RED CELL DISTRIBUTION WIDTH 16.3 % (9.0-15.0); WHITE BLOOD COUNT (AUTO) 4.2 K/uL (4.8-10.8)
--- NOTE | 2021-11-19 08:00 | NUR ---
NOTES PATIENT AAOX 4. VITALS SIGNS STABLE. AFEBRILE. LUNGS BILATERALLY BUT DIMINISHED AT THE BASES. ABDOMEN SOFT AND NON DISTENDED. HAS IV ACCESS RT UPPER ARM PICC LINE. SALINE LOCKED. HAS IV ACCESS ON THE LEFT FOREARM #20 SALINE LOCKED. PATENT/DRY. WILL CONTINUE
[2021-11-19 08:06] LABS: FOLATE (FOLIC ACID) 4.5 ng/mL (>3.0)
[2021-11-19] MEDS: FAMOTIDINE PF 20 MG/2 ML VIAL IVP SCH ×2 (09:54→21:46)
[2021-11-19] MEDS: SENNA 8.8 MG/5 ML UDC NG SCH ×2 (09:54→21:46)
[2021-11-19] MEDS: OSELTAMIVIR PHOSPHATE 75 MG CAPSULE PO SCH ×2 (09:55→21:46)
[2021-11-19] MEDS: amLODIPine BESYLATE 5 MG TABLET PO SCH (09:56)
[2021-11-19] MEDS: ENOXAPARIN SODIUM 80 MG/0.8 ML SYRINGE SUBCUT SCH ×2 (09:57→21:51)
[2021-11-19] MEDS: MORPHINE 2 MG/ML INJ. SYRINGE IVP PRN ×2 (10:01→14:17)
--- NOTE | 2021-11-19 10:20 | NUR ---
due meds given at this time. morphine 3 mg iv given for generalized pain. made comfortable.
[2021-11-19] MEDS: KETOCONAZOLE 2% TP SCH (10:25)
--- NOTE | 2021-11-19 10:40 | NUR ---
DR FERNÁNDEZ CALLED FOR POTASSIUM LEVEL OF 3.3. AWAITING TO CALL BACK.
[2021-11-19] MEDS ORDERED: POTASSIUM CHLORIDE 40 MEQ in D5W 250 ML IV ONE (11:15)
--- NOTE | 2021-11-19 13:19 | NUR ---
Nutrition F/U Admitting Diagnosis: Septic shock Medical History Comment: obesity, HLD, neck Sx, QP per physician notes Pt also found w/ SIRS, influenza B w/ hyponatremia and bradycardia per physician notes SARS-CoV-2 Ag (Rapid) Negative 11/14 & Influenza B Positive 11/14 Subjective Information: RD bedside visit deferred d/t high pt load. Per EMR review, pt is for discharge back to rehab facility. Current Diet Order/Nutrition Support: Mechanical soft 2gm Na diet. Pertinent Medications: reviewed Pertinent Labs : 11/19 Na 141, K 3.3L, BG 95, BUN 10, Cre 0.76 Height (Feet) 5 feet Height (Inches) 0.00 inches Weight (Pounds) 179 pounds (11/15) --stable Weight (Calculated Kilograms) 81.936208 kilograms Patient Weight 81.193 kg Body Mass Index 34.95 kg/m2 %IBW 169 [place]/Adjusted Body Weight 106#/48 kg. 124#/56 kg Estimated Energy Expenditure (kcals/day) 9387-9688 (30-35 kcal/kg Adj IBW d/t SIRS) Estimated Protein Required (g/day) 84-112 (1.5-2 gm/kg Adj IBW d/t SIRS) Estimated Fluid Required (l/day) 1.7-2 (1 ml/kcal/day for maintenance) Problem/Etiology/Signs/Symptoms Complicated GI function R/T unknown etiology AEB diarrhea and vomiting. (*improved) Expected Outcomes/Goals - Monitor tolerance to PO diet, appetite, and PO intakes w/ goal of pt meeting at least 50% of estimated nutritional needs, labs trending WNL, normal GI function, and skin integrity/wt maintenance Dietitian Recommendations * Continue Mechanical soft diet chopped 2gm Na diet. Follow Up Mod Risk: F/U in 3-5days
--- NOTE | 2021-11-19 14:21 | NUR ---
CM: LVM to [facility] worker's comp # [phone] and to [facility] # [phone], requesting ambulance auth to transfer pt back to [facility] as per dc order today. Pt's spouse, Marley made aware, she agreed with the transfer back to the rehab today. >>Faxed the order and updated progress note to Porsha Alcantartormarit[facility]. The pt is accepting back to room 9, PAIGE to report # [phone]. Addendum: 11/19/21 at 1519 by Abdirashid Drake RN >>S/W Arlin, worker's comp # [phone], I requested the lemon picker time after 6 pm per PAIGE Stephens this is due to K - David infusion is in progress. Arlin stated she arranged the ambulance through " [facility] " who will be calling nursing unit back for the lemon picker time. PAIGE Barron aware.
--- NOTE | 2021-11-19 16:17 | NUR ---
ST EVALUATION COMPLETED. ST TX NOT INDICATED AT THIS TIME. RECOMMEND PO DIET OF REGULAR TEXTURE AND THIN LIQUID WITH 1:1 FEEDER AND FULL ASPIRATION PRECAUTIONS
--- NOTE | 2021-11-19 16:23 | NUR ---
Pt refused PT due to pain at this time. Will attempt PT on another day.
--- NOTE | 2021-11-19 17:19 | NUR ---
GHASSAN INSPECTOR WELDED PARTS CAME WHERE TO INSPECTOR WELDED PARTS THE PATIENT AND INFORMED THE WET ROLLER NAMED ART, THAT HE CANNOT INSPECTOR WELDED PARTS THE PATIENT. DUE TO THE STATUS OF THE PATIENT. DR FERNÁNDEZ CALLED AT THIS TIME. AWAITING TO CALL BACK.
--- NOTE | 2021-11-19 19:30 | NUR ---
OPENING NOTES RECEIVED REPORT FROM DAY RN. PATIENT TO BE DISCHARGED TO [facility], SENT WRONG TRANSPORTATION DEVICE FOR PATIENT STATUS. WILL AWAIT PROPER TRANSPORTATION FOR PATIENT TRANSFER. PATIENT AWAKE, ALERT AND ORIENTED. SITTING IN BED WATCHING TV. BREATHING EVEN AND UNLABORED ON ROOM AIR. METZ INTACT AND DRAINING WITH GRAVITY. IV IN RIGHT PIC RUNNING TKO. BED IN LOWEST AND LOCKED POSITION. SAFETY PRECAUTIONS IN PLACE. WILL CONTINUE TO MONITOR.
--- NOTE | 2021-11-19 21:23 | NUR ---
PAGED DR. FERNÁNDEZ REGARDING PT D/C. AND UNABLE TO TRANSFER PT IN [facility]. WILL AWAIT CALLBACK.
--- NOTE | 2021-11-19 21:27 | NUR ---
CALLBACK FROM DR. FERNÁNDEZ INFORMED OF PT NOT BEING D/C D/T UNSAFE TRANSFER CONDITIONS. OK TO HOLD D/C UNTIL CASE MANAGEMENT ABLE TO ARRANGE NEW TRANSPORTATION. NEW ORDERS PLACED.
[2021-11-19] MEDS: DIPHENHYDRAMINE HCL 25 MG CAPSULE PO SCH (21:45)
[2021-11-19] MEDS: TEMAZEPAM 7.5 MG CAPSULE PO SCH (21:46)
--- NOTE | 2021-11-19 21:58 | NUR ---
TRANSPORTATION CALL FROM [facility]. REHAB INQUIRED ABOUT STATUS OF TRANSFER FROM [facility]. CLAIMS A SECOND TRANSPORT WAS DUE TO SPAN[facility] LINGUIST PT WITH THE PROPER TRANSFORATION DEVICE FOR PATIENT SAFETY AND COMFORT. VERIFIED THAT NO INFORMATION WAS PASSED ALONG TO [facility] REGARDING ANOTHER TRANSPORTATION UNIT BEING DISPATCHED. WILL CALL BACK TO VERIFY CORRECT TRANSPORTATION INFORMATION FOR PATIENT.
--- NOTE | 2021-11-19 23:00 | NUR ---
CONTACTED ACUTE REHAB FOLLOW UP WITH [facility]. NO NEW TRANSPORTATION ORDERED, PREVIOUSLY STATED. WILL WAIT UNTIL MORNING, 11/20 TO INITIATE NEW TRANSPORTATION FOR PT.
[2021-11-20 00:39] VITALS: BP_SYST 165
[2021-11-20] MEDS: HYDROcodone/ACETAMIN 10-325 MG TAB PO PRN (00:52)
[2021-11-20] MEDS: AMIKACIN SULFATE 450 MG in D5W 100 ML IV SCH ×2 (01:49→16:06)
--- NOTE | 2021-11-20 02:00 | NUR ---
ROUNDING PATIENT IN BED RESTING WITH EYES CLOSED. ADJUSTED PATIENT PILLOWS AT REQUEST OF PATIENT. PATIENT VERIFIED COMFORT. SAFETY PRECAUTIONS IN PLACE. BED IN LOWEST AND LOCKED POSITION. WILL CONTINUE TO MONITOR.
[2021-11-20] MEDS: ACETAMINOPHEN 325 MG TABLET PO PRN (04:10)
[2021-11-20] MEDS: METOCLOPRAMIDE HCL 10 MG/2 ML VIAL IVP SCH ×2 (06:05→16:02)
--- NOTE | 2021-11-20 06:34 | NUR ---
CLOSING NOTE PATIENT IS IN BED RESTING WITH EYES CLOSED. ADJUSTED PILLOWS FOR PATIENT COMFORT. METZ INTACT AND DRAINING WITH GRAVITY. RITESH PICC LINE INTACT AND FLUSHES WELL AND PATENT. REMOVED OTHER IV LINES ON L FOREARM AND RIGHT AC. PATIENT DENIES SHORTNESS OF BREATH AND PAIN. ALL NEEDS MET. BED IN LOWEST AND LOCKED POSITION. SAFETY PERCEPTIONS IN PLACE. WILL ENDORSE TO DAY RN.
--- NOTE | 2021-11-20 08:00 | NUR ---
NOTES PATIENT AAOX 4. VITALS SIGNS STABLE. AFEBRILE. LUNGS BILATERALLY DIMINISHED AT BASES. ABDOMEN SOFT AND NON DISTENDED. HAS RT UPPER PICC LINE. SALINE LOCK. CALL LIGHTS WITHIN REACH. BED LOW POSITION, ALARMED AND LOCKED. WILL CONTINUE TO MONITOR. HAS METZ CATHETER IN PLACED AND DRAINING WELL.
[2021-11-20 08:03] LABS: ALBUMIN 2.3 g/dL (3.4-4.8); CALCIUM 8.2 mg/dL (8.4-11.0); CREATININE 0.63 mg/dL (0.55-1.30); POTASSIUM 3.2 mmol/L (3.5-5.1); TOTAL BILIRUBIN 0.2 mg/dL (0.0-1.0)
[2021-11-20 09:00] VITALS: BP_SYST 154
--- NOTE | 2021-11-20 09:30 | NUR ---
DUE MEDS GIVEN TO THE PATIENT.
[2021-11-20] MEDS: MORPHINE 2 MG/ML INJ. SYRINGE IVP PRN ×2 (09:55→14:34)
--- NOTE | 2021-11-20 10:17 | NUR ---
DR FERNÁNDEZ CALLED FOR POTASSIUM LEVEL OF 3.2. AWAITING TO CALL BACK FOR ORDERS.
[2021-11-20] MEDS: ENOXAPARIN SODIUM 80 MG/0.8 ML SYRINGE SUBCUT SCH (10:41)
[2021-11-20] MEDS: SENNA 8.8 MG/5 ML UDC NG SCH (10:42)
[2021-11-20] MEDS: FAMOTIDINE PF 20 MG/2 ML VIAL IVP SCH (10:42)
[2021-11-20] MEDS: amLODIPine BESYLATE 5 MG TABLET PO SCH (10:47)
--- NOTE | 2021-11-20 10:52 | NUR ---
Left message for [facility] [phone]-worker comp CM-patient will need [facility] transport to [facility]. Spoke w/ daughter at [phone]-let her know transportation is being arranged and she will be notified when patient is going to be transported.
[2021-11-20] MEDS ORDERED: POTASSIUM CHLORIDE 20 MEQ TAB.PRT.SR PO ONE ×2 (11:45→14:00)
--- NOTE | 2021-11-20 12:23 | NUR ---
PHYSICAL THERAPY CO-SIGN The Physical Therapy Progress Notes documented by Career Resource Specialist have been reviewed. Reviewed/Co-Signed by: Javier Reaves Documentation Done by: MONSERRAT MIX PTA Addendum: 11/20/21 at 1223 by Javier Reaves PT Amended: Links added.
[2021-11-20 12:38] VITALS: BP_SYST 158
[2021-11-20] MEDS ORDERED: POTA-197 PO (14:45)
[2021-11-20 16:00] VITALS: BP_SYST 155
[2021-11-20] MEDS ORDERED: POTASSIUM CHLORIDE 40 MEQ, LIDOCAINE JECT 2% PF 100 MG 50 MG in NS 250 ML IV ONE (16:00)
--- NOTE | 2021-11-20 16:00 | NUR ---
PATIENT REFUSED TO HAVE PHOTOS ON THE PENIS AND SACRAL AREA. WHITE SPOT SCAR BUT NO WOUND NOTED.
--- NOTE | 2021-11-20 18:00 | NUR ---
YANY CALLED [facility] THAT PATIENT GOING NOW, [facility] HERE TO IT SUPPORT CONSULTANT THE PATIENT. AND KIMBERLY CHARGE NURSE SPOKE TO THEM FOR FOLLOW UP TRANSFER TO SAME [facility].
[2021-11-20 18:44] VITALS: BP_SYST 140
--- NOTE | 2021-11-20 18:45 | NUR ---
PATIENT LEFT IN STABLE CONDITION, WELFARE MANAGER BY [facility] BLS. DR FERNÁNDEZ AGREED TO TRANSFER AT THIS TIME. PATIENT HAS PICC LINE 2 LUMEN. HAS METZ CATHETER DRAINING WELL. CLEAR YELLOW URINE. DISCHARGE SUMMARY GIVEN TO THE AMBULANCE MAGDIEL JASMINE EMT. PATIENT WILL GO TO ROOM 9. REPORT GIVEN TO CELIA GIBSON 11/19/21. TO CONTINUE SAME MEDICATION, PREVIOUSLY ORDERED. SDCH I D BAND REMOVED.
[2021-11-20 19:28] VITALS: BP_SYST 15
[2021-11-20] MEDS ORDERED: POTASSIUM CHLORIDE 20 MEQ TAB.PRT.SR PO SCH (21:00)
== END 2021-11-20 18:45 | DRG 193 ==
LOC: SED 13:32 → SIC 19:16 → STU 11-18 18:56
PROVIDERS: ADMIT Internal Medicine; ATTEND Internal Medicine
PROC: 02HV33Z Insertion of Infusion Device into Superior Vena Cava, Percutaneous Approach (ICD-10-PCS; principal; 2021-11-14)
DX: J10.08 Influenza due to other identified influenza virus with other specified pneumonia (principal); G82.50 Quadriplegia, unspecified; E43 Unspecified severe protein-calorie malnutrition; I82.411 Acute embolism and thrombosis of right femoral vein; K56.7 Ileus, unspecified; N12 Tubulo-interstitial nephritis, not specified as acute or chronic; R65.10 Systemic inflammatory response syndrome (SIRS) of non-infectious origin without acute organ dysfunction; J12.9 Viral pneumonia, unspecified; R00.1 Bradycardia, unspecified; D64.9 Anemia, unspecified; E78.5 Hyperlipidemia, unspecified; E66.9 Obesity, unspecified; K56.41 Fecal impaction; E87.6 Hypokalemia; Z20.822 Contact with and (suspected) exposure to COVID-19; Z68.35 Body mass index [BMI] 35.0-35.9, adult
CPT/HCPCS: 36415; 36600; 70450-TC; 71045; 71275; 74018; 74250-TC; 76376; 80048; 80053; 80150; 80307; 81000; 82009; 82140; 82272; 82533; 82550; 82607; 82746; 82803-TC; 83540; 83550; 83605; 83690; 83735; 83880; 84100; 84439; 84484; 85025; 85379; 85610-TC; 85730-TC; 86140; 86710; 86713; 87040; 87081; 87086; 87230-TC; 92610-GN; 93005; 93970; 96361; 96365; 96366; 96367; 96375; 97110-GP; 99291; G0378; G0480; G0481; G0482; G9035; J0131; J0278; J0360; J1265; J1650; J1885; J2270; J2405; J2543; J2765; J3370; J3480; J3490; J7050; J7060; Q0163; Q9963; Q9967

== ENCOUNTER 2022-06-17 14:18 | Inpatient (IN) | payer OTHER ==
[~2022-06-17] VITALS: Ht 182.9 cm; Wt 73.0 kg
[~2022-06-17 14:18] MED LIST: POTA-197 PO
--- NOTE | 2022-06-17 14:24 | NUR ---
Placed in room 03 . Placed on bus monitor, blood pressure machine and pulse oximeter. To gown for exam. Side rails up.
[2022-06-17] MEDS ORDERED: NS 1000 ML IV.SOLN IV ONE (14:30)
--- NOTE | 2022-06-17 14:35 | NUR ---
EKG performed at by [facility]. Physician given copy of EKG for review.
[2022-06-17 14:37] VITALS: BP_SYST 97
--- NOTE | 2022-06-17 14:46 | NUR ---
milking machine technician at bedside.
--- NOTE | 2022-06-17 14:46 | NUR ---
2L NS running bolus.
--- NOTE | 2022-06-17 14:55 | NUR ---
ER at bedside examining patient.
[2022-06-17 15:09] LABS: BASOPHILS % (AUTO) 0.4 % (0.0-2.0); EOSINOPHILS % (AUTO) 0.4 % (0.0-4.0); HEMATOCRIT 30.3 % (36-54); HEMOGLOBIN 10.2 g/dL (14.0-18.0); LYMPHOCYTES # (AUTO) 0.7 K/uL (1.0-5.5); LYMPHOCYTES % (AUTO) 8.3 % (20.5-51.5); MEAN CORPUSCULAR HEMOGLOBIN 24 pg (27-31); MEAN CORPUSCULAR HGB CONC 34 % (32-36); MEAN CORPUSCULAR VOLUME 71 fL (79.0-98.0); MONOCYTES # (AUTO) 0.7 K/uL (0.0-1.0); MONOCYTES % (AUTO) 7.7 % (1.7-9.3); NEUTROPHILS # (AUTO) 7.4 K/uL (1.8-7.7); NEUTROPHILS % (AUTO) 83.2 % (40.0-70.0); PLATELET COUNT (AUTO) 180 K/uL (130-430); RED BLOOD CELL COUNT(AUTO) 4.29 MIL/uL (4.2-6.2); RED CELL DISTRIBUTION WIDTH 18.1 % (9.0-15.0); WHITE BLOOD COUNT (AUTO) 8.9 K/uL (4.8-10.8)
[2022-06-17] MEDS ORDERED: ATROPINE SULFATE 0.4 MG/ML VIAL IVP ONE (15:30)
[2022-06-17 15:44] LABS: ALANINE AMINOTRANSFERASE 9 U/L (12-78); ALBUMIN 2.9 g/dL (3.4-4.8); ASPARTATE AMINOTRANSFERASE 14 U/L (10-37); CALCIUM 8.4 mg/dL (8.4-11.0); CREATININE 1.38 mg/dL (0.55-1.30); GLUCOSE 108 mg/dL (70-99); TOTAL BILIRUBIN 0.5 mg/dL (0.0-1.0); UREA NITROGEN, BLOOD 12 mg/dL (8-21)
[2022-06-17 15:59] LABS: GFR AFRICAN AMERICAN 67 mL/min (>90)
[2022-06-17 16:03] LABS: ANION GAP 9 (5-15); CHLORIDE 108 mmol/L (98-107); POTASSIUM 3.7 mmol/L (3.5-5.1); SODIUM SERUM 141 mmol/L (136-145)
[2022-06-17] MEDS ORDERED: cefTRIAXone 1 GM IVPB PREMIX 50 ML IV ONE (17:00)
[2022-06-17] MEDS ORDERED: ALBUMIN HUMAN 5% 250 ML IV ONE (18:15)
--- NOTE | 2022-06-17 18:31 | NUR ---
Admit bed requested Patient will be admitted to care of . Admitted to TELE unit. Diagnosis HYPOTENSION R/O SEPSIS Inpatient (Yes or No) YES Observation (Yes or No) NO Orientation concerns or request close to nursing station (Yes or No) NO Covid Status NEGATIVE On vent or bipap NO Isolation requirements NO Needs a sitter NO From Home (Yes or if No enter name of facility) [facility] Requires Dialysis (Yes or No) NO Med Rec Completed (Yes of No) YES
[2022-06-17] MEDS: NACL 0.9% 1,000 ML IV SCH ×2 (18:33→21:49)
[2022-06-17] MEDS ORDERED: OXYC10TA56 PO (18:45)
[2022-06-17] MEDS ORDERED: ONDA-8 TL (18:45)
[2022-06-17] MEDS ORDERED: NEU300 PO (18:45)
[2022-06-17] MEDS ORDERED: TEMA15CA5 PO (18:45)
[2022-06-17] MEDS ORDERED: ACET325T PO (18:45)
[2022-06-17] MEDS ORDERED: DOCU250C14 PO (18:45)
[2022-06-17] MEDS ORDERED: DIPH25CA83 PO (18:45)
[2022-06-17] MEDS ORDERED: PRAM0.5T3 PO (18:45)
[2022-06-17] MEDS ORDERED: SENN8.6T19 PO (18:45)
[2022-06-17] MEDS ORDERED: FAMO40OR4 PO (18:45)
[2022-06-17] MEDS ORDERED: LOVI40 SQ (18:45)
[2022-06-17] MEDS ORDERED: ZAN4 PO (18:45)
[2022-06-17] MEDS ORDERED: POLY17PO44 PO (18:45)
[2022-06-17] MEDS ORDERED: AMOX500C2 PO (18:46)
[2022-06-17] MEDS ORDERED: BETH5TAB10 PO (18:46)
[2022-06-17] MEDS ORDERED: CAT1PAT TD (18:46)
--- NOTE | 2022-06-17 18:47 | NUR ---
Medication reconciliation completed with information provided by Pt. Any prior medication reconciliation on file was reviewed and corrected.
--- NOTE | 2022-06-17 20:05 | NUR ---
Patient will be admitted to care of Dr. Molina . Admitted to Tele unit. Will go to room 110 bed B.. Belongings list completed. Complete and up to date summary report printed. SBAR report given to PAIGE Diego at bedside with opportunity for questions.
[2022-06-17 20:25] VITALS: BP_SYST 144
[2022-06-17 20:39] VITALS: BP_SYST 144
[2022-06-17] MEDS ORDERED: TEMAZEPAM 15 MG CAPSULE PO PRN (21:15)
[2022-06-17] MEDS ORDERED: NALOXONE HCL 0.4 MG/ML AMP (NARCAN) IVP PRN ×2 (21:15)
[2022-06-17] MEDS ORDERED: MORPHINE 2 MG/ML INJ. SYRINGE IVP PRN ×2 (21:15)
--- NOTE | 2022-06-18 00:43 | NUR ---
[address] spoke with Dr. Molina regarding pt c/o generalized pain and sleeping pills and med reconcilation. Dr. Molina ordered morphine 1mg q4h PRN for moderate pain, morphine 2mg q4h PRN for severe pain and temazepam 15mg PO qhs PRN, orders noted and carried out, pt agreeable, pt caregiver at bedside. will continue plan of care.
[2022-06-18 08:00] VITALS: BP_SYST 159
[2022-06-18 08:41] LABS: CALCIUM 8.4 mg/dL (8.4-11.0); CREATININE 0.93 mg/dL (0.55-1.30); POTASSIUM 4.2 mmol/L (3.5-5.1)
[2022-06-18] MEDS: NACL 0.9% 1,000 ML IV SCH ×3 (08:47→20:55)
[2022-06-18 08:48] LABS: EOSINOPHILS # (AUTO) 0.1 K/uL (0.0-0.4); LYMPHOCYTES # (AUTO) 0.8 K/uL (1.0-5.5); NEUTROPHILS # (AUTO) 5.5 K/uL (1.8-7.7); WHITE BLOOD COUNT (AUTO) 7.1 K/uL (4.8-10.8)
[2022-06-18 08:53] LABS: BASOPHILS % (AUTO) 0.6 % (0.0-2.0); HEMATOCRIT 27.9 % (36-54); HEMOGLOBIN 9.3 g/dL (14.0-18.0); LYMPHOCYTES % (AUTO) 11.9 % (20.5-51.5); MEAN CORPUSCULAR HEMOGLOBIN 24 pg (27-31); MEAN CORPUSCULAR HGB CONC 34 % (32-36); MEAN CORPUSCULAR VOLUME 71 fL (79.0-98.0); MONOCYTES # (AUTO) 0.6 K/uL (0.0-1.0); MONOCYTES % (AUTO) 8.7 % (1.7-9.3); NEUTROPHILS % (AUTO) 77.8 % (40.0-70.0); RED BLOOD CELL COUNT(AUTO) 3.94 MIL/uL (4.2-6.2); RED CELL DISTRIBUTION WIDTH 18.5 % (9.0-15.0)
--- NOTE | 2022-06-18 11:18 | NUR ---
CONSULTATION PAGED REASON FOR CONSULTATION:HYPOTENSION WAS CONSULT CALLED?Y -PERSON WHO WAS NOTIFIED:TEENA CONSULTING PHYSICIAN:VIANNEY DOMINGUEZ FIELD CANE SCALER HELPER SPECIALTY:CARDIO FIELD CANE SCALER HELPER PHONE NUMBER:[phone] REQUESTING PHYSICIAN:SERA HUI
--- NOTE | 2022-06-18 11:22 | NUR ---
CONSULTATION PAGED REASON FOR CONSULTATION:UTI WAS CONSULT CALLED?Y -PERSON WHO WAS NOTIFIED:ARTURO CONSULTING PHYSICIAN:JODI PEDERSEN BUSINESS TRANSFORMATION ANALYST SPECIALTY:ID BUSINESS TRANSFORMATION ANALYST PHONE NUMBER:[phone] REQUESTING PHYSICIAN:SERA HUI
[2022-06-18 11:31] VITALS: BP_SYST 145
[2022-06-18 12:34] LABS: PLATELET COUNT (AUTO) 175 K/uL (130-430)
--- NOTE | 2022-06-18 12:52 | NUR ---
supply chain logistics manager at [facility] is [facility] [phone]/ . Patient is authorized through October 2022 for [facility] in [place]-He is to return to [facility] when medically stable.
[2022-06-18] MEDS ORDERED: ONDANSETRON 4 MG ODT TAB TL PRN (14:15)
[2022-06-18] MEDS ORDERED: POLYETHYLENE GLYCOL 3350, 17 GM/ POWD.PACK PO PRN (14:15)
[2022-06-18] MEDS ORDERED: ACETAMINOPHEN 325 MG TABLET PO PRN (14:15)
[2022-06-18] MEDS ORDERED: cloNIDine HCL 0.1 MG/24 HR PATCH.TDWK TD SCH (14:15)
[2022-06-18] MEDS ORDERED: oxyCODONE HCL 10 MG TAB.ER.12H PO ONE (14:45)
[2022-06-18] MEDS ORDERED: PRAMIPEXOLE DI-HCL 0.25 MG TABLET PO ONE (14:45)
[2022-06-18] MEDS ORDERED: GABAPENTIN 300 MG CAPSULE PO ONE (14:45)
[2022-06-18] MEDS ORDERED: ENOXAPARIN SODIUM 40 MG/0.4 ML SYRINGE SQ ONE (14:45)
[2022-06-18] MEDS ORDERED: DOCUSATE SODIUM 250 MG CAPSULE PO ONE (14:45)
[2022-06-18] MEDS: AMOXICILLIN 500 MG CAPSULE PO SCH ×2 (15:03→21:35)
[2022-06-18] MEDS: tiZANidine HCL 4 MG TABLET PO SCH ×2 (15:03→21:32)
[2022-06-18 15:38] VITALS: BP_SYST 140
--- NOTE | 2022-06-18 19:15 | NUR ---
RECEIVED REPORT ON PATIENT FROM VIGNESH RN, ASSUMED CARE, AND STARTED ASSESSMENT.
[2022-06-18] MEDS: POTASSIUM CHLORIDE 20 MEQ TAB.PRT.SR PO SCH (21:33)
[2022-06-18] MEDS: GABAPENTIN 300 MG CAPSULE PO SCH (21:33)
[2022-06-18] MEDS: DOCUSATE SODIUM 250 MG CAPSULE PO SCH (21:34)
[2022-06-18] MEDS: DIPHENHYDRAMINE HCL 25 MG CAPSULE PO SCH (21:35)
[2022-06-18] MEDS: oxyCODONE HCL 10 MG TAB.ER.12H PO SCH (21:35)
[2022-06-18] MEDS: TEMAZEPAM 15 MG CAPSULE PO SCH (21:37)
[2022-06-18] MEDS: SENNOSIDES 8.6 MG TABLET PO SCH (21:39)
[2022-06-19 00:59] VITALS: BP_SYST 147
--- NOTE | 2022-06-19 07:15 | NUR ---
C-DIFF POSITIVE GEORGINA BURNETTCLINICAL ADMISSIONS MANAGER RECEIVED A CALL FROM [facility] STAFF THAT PATIENT IS POSTIVE FOR C-DIFF. PATIENT ON CONTACT ISOLATION.
--- NOTE | 2022-06-19 07:21 | NUR ---
REPORT GIVEN TO PAIGE MEDELLIN, AND CARE WAS TURNED OVER TO HER.
[2022-06-19 08:00] VITALS: BP_SYST 189
--- NOTE | 2022-06-19 08:14 | NUR ---
SNF Reported C-Diff Positive Result: Per shift report from Regine (MELODY), the SNF for this patient reported that the patient had a C-Diff positive test result. Regine informed the RN for the patient. This copywriter informed the Infection Control Nurse.
[2022-06-19] MEDS: PRAMIPEXOLE DI-HCL 0.25 MG TABLET PO SCH (09:00)
[2022-06-19] MEDS: GABAPENTIN 300 MG CAPSULE PO SCH ×2 (09:00→21:36)
[2022-06-19] MEDS: POTASSIUM CHLORIDE 20 MEQ TAB.PRT.SR PO SCH ×2 (09:38→21:00)
[2022-06-19] MEDS: SENNOSIDES 8.6 MG TABLET PO SCH ×2 (09:38→21:37)
[2022-06-19] MEDS: tiZANidine HCL 4 MG TABLET PO SCH ×3 (09:38→21:36)
[2022-06-19] MEDS: AMOXICILLIN 500 MG CAPSULE PO SCH ×3 (09:38→21:36)
[2022-06-19] MEDS: oxyCODONE HCL 10 MG TAB.ER.12H PO SCH ×2 (09:39→21:38)
[2022-06-19] MEDS: ENOXAPARIN SODIUM 40 MG/0.4 ML SYRINGE SQ SCH (09:39)
[2022-06-19] MEDS: DOCUSATE SODIUM 250 MG CAPSULE PO SCH ×2 (09:39→21:00)
[2022-06-19] MEDS: VANCOMYCIN HCL ORAL SOLUTION 125 MG/5 ML, 150 ML PO SCH ×4 (10:56→21:38)
[2022-06-19 12:00] VITALS: BP_SYST 140
[2022-06-19] MEDS: NACL 0.9% 1,000 ML IV SCH (12:17)
[2022-06-19 16:28] VITALS: BP_SYST 136
[2022-06-19 20:00] VITALS: BP_SYST 186
--- NOTE | 2022-06-19 21:30 | NUR ---
PT REFUSED REPOSITIONING TECHNOLOGY AND ENGINEERING TEACHER AND NURSE CAME IN AND ASKED PT IF HE WOULD LIKE TO BE REPOSITIONED. PT REFUSED PT PRIVATE CAREGIVER PRESENT
[2022-06-19] MEDS: DIPHENHYDRAMINE HCL 25 MG CAPSULE PO SCH (21:37)
[2022-06-19] MEDS: TEMAZEPAM 15 MG CAPSULE PO SCH (21:37)
--- NOTE | 2022-06-19 22:15 | NUR ---
paged paged doctor bose for orders
--- NOTE | 2022-06-19 22:18 | NUR ---
SPOKE WITH PATTY SPOKE WITH DR BRAMBILA FOR PTS BP OF 186/95. ORDERED A ONE TIME DOSE OF AMLODIPINE 5 MG PO. NURSE READ BACK ORDERS, CONFIRMED
[2022-06-19] MEDS ORDERED: amLODIPine BESYLATE 5 MG TABLET PO ONE (22:30)
--- NOTE | 2022-06-19 22:30 | NUR ---
PT REFUSED BP MED WENT IN TO GIVE PT BP MEDICATION FOR HIGH BP OF 186/95. PT DIDN'T RECOGNIZE MEDICATION, NURSE EXPLAINED MEDICATION. PT STATED HE USES ANOTHER MEDICATION FOR BP, NOT AVAILABLE AT THIS TIME. WHEN NURSE EXPLAINED THE AMLODIPINE IS WHAT THE DR ORDERED THE AR RESPONDED WITH "THE DOCTOR WHO HASN' SEEN ME IN 3 DAYS." WHEN THE NURSE ASKED HIM IF WOULD TAKE THE MEDICATION THE PATIENT REFUSED AND STATED "MY BLOOD PRESSURE WILL COME DOWN ON ITS OWN." NURSE INFORMED PT OF THE RISK AND PT STILL REFUSED.
[2022-06-20] VITALS: BP_SYST 146
[2022-06-20 08:00] VITALS: BP_SYST 152
[2022-06-20] MEDS: oxyCODONE HCL 10 MG TAB.ER.12H PO SCH (09:06)
[2022-06-20] MEDS: SENNOSIDES 8.6 MG TABLET PO SCH (09:06)
[2022-06-20] MEDS: tiZANidine HCL 4 MG TABLET PO SCH ×2 (09:06→14:45)
[2022-06-20] MEDS: POTASSIUM CHLORIDE 20 MEQ TAB.PRT.SR PO SCH (09:06)
[2022-06-20] MEDS: ENOXAPARIN SODIUM 40 MG/0.4 ML SYRINGE SQ SCH (09:06)
[2022-06-20] MEDS: DOCUSATE SODIUM 250 MG CAPSULE PO SCH (09:06)
[2022-06-20] MEDS: GABAPENTIN 300 MG CAPSULE PO SCH (09:07)
[2022-06-20] MEDS: VANCOMYCIN HCL ORAL SOLUTION 125 MG/5 ML, 150 ML PO SCH ×3 (09:07→16:58)
[2022-06-20] MEDS: PRAMIPEXOLE DI-HCL 0.25 MG TABLET PO SCH (09:42)
[2022-06-20] MEDS: AMOXICILLIN 500 MG CAPSULE PO SCH ×2 (09:42→14:44)
[2022-06-20 12:00] VITALS: BP_SYST 142
[2022-06-20 13:29] VITALS: BP_SYST 142
--- NOTE | 2022-06-20 14:41 | NUR ---
Discharge Planning: JOHNSONP faxed Arlin [phone] DC order so she can arrange transport to [facility]. DCP made CM, patient and nurse aware. Patient packet taken to nurse station.
--- NOTE | 2022-06-20 15:54 | NUR ---
1 CALL CARE MGMT CALLED RE: TRANSPORT TO TAKE PT BACK TO [facility]. [facility] WILL COME AT 1615 ([phone]). SPOKE TO SEA. RELAYED INFO TO PAIGE MANDUJANO AND TO THE CAREGIVER.
[2022-06-20 17:03] VITALS: BP_SYST 140
--- NOTE | 2022-06-20 17:05 | NUR ---
patient discharged to [facility] in the company of two attendants. instructions given.patient verbalized understanding.
[2022-06-21] MEDS ORDERED: amLODIPine BESYLATE 5 MG TABLET PO SCH (09:00)
== END 2022-06-20 17:00 | disposition home or self-care (01) | DRG 871 ==
LOC: SED 14:18 → STU 18:04
PROVIDERS: ADMIT Internal Medicine; ATTEND Internal Medicine
DX: A41.9 Sepsis, unspecified organism (principal); G82.50 Quadriplegia, unspecified; N17.9 Acute kidney failure, unspecified; N39.0 Urinary tract infection, site not specified; A04.72 Enterocolitis due to Clostridium difficile, not specified as recurrent; N18.9 Chronic kidney disease, unspecified; E86.0 Dehydration; Z20.822 Contact with and (suspected) exposure to COVID-19; K59.00 Constipation, unspecified; Z74.01 Bed confinement status; Z87.440 Personal history of urinary (tract) infections; Z87.442 Personal history of urinary calculi; Z79.899 Other long term (current) drug therapy
CPT/HCPCS: 36415; 71045; 80048; 80053; 83605; 84484; 85025; 87040; 87081; 93005; 96361; 96365; 96375; 99291; G0378; J0461; J0696; J1650; J2270; P9041; Q0163